=== PATIENT | female | born 1985 | race Asian ===

== ENCOUNTER 2018-05-07 16:15 | Inpatient (IN) | payer OTHER ==
[~2018-05-07] VITALS: Ht 162.6 cm; Wt 67.0 kg
--- NOTE | 2018-05-07 17:54 | PR ---
[facility] [address] [facility] [place] [address] Signed Progress Notes IP Datetime Report Generated by CPN: 05/07/2018 17:54 PROGRESS NOTES: [id number] Plan: Continue present management VITAL SIGNS: [id number] Vital Signs: Reviewed; Within Normal Limits EXAM: [id number] Dilatation: 1.0 Effacement: 50 Station: -2 Uterine Contractions: 1 contractions MEMBRANES: [id number] Membrane Status: Intact Comments: Cytotec x1, only 1 contraction, that one with slight decel. WItll watch closely. Fetus A: [id number] FHR Baseline: 130 Variability: Moderate 6-25bpm Accelerations: 15X15 Decelerations: None Presentation: Vertex Fetus B: [id number] Signing Physician: Sera Hanson MD Copies: ~ *Electronically Signed* 05/07/18 1754 SERA HANSON MD PATIENT NAME: CAIT OLIVO PROGRESS NOTE DATE OF : 81 PHYSICIAN: SERA HANSON MD RPT #: [id number] REPORT IS CONFIDENTIAL AND NOT TO BE RELEASED WITHOUT AUTHORIZATION
--- NOTE | 2018-05-07 20:32 | PR ---
[facility] [address] [facility] [place] [address] Signed Progress Notes IP Datetime Report Generated by CPN: 05/07/2018 20:32 PROGRESS NOTES: [id number] Plan: Continue present management VITAL SIGNS: [id number] Vital Signs: Reviewed; Within Normal Limits EXAM: [id number] Dilatation: 1.0 Effacement: 50 Station: -1 Uterine Contractions: every 4-6 minutes MEMBRANES: [id number] Membrane Status: Intact Comments: Just received 2nd Cytotec, fetus tolerating contractions well. Will continue with Induction, monitor as needed Fetus A: [id number] FHR Baseline: 125 Variability: Moderate 6-25bpm Accelerations: 15X15 Decelerations: None Presentation: Vertex Fetus B: [id number] Signing Physician: Sera Hanson MD Copies: ~ *Electronically Signed* 05/07/182031 SERA HANSON MD PATIENT NAME: CAIT OLIVO PROGRESS NOTE DATE OF : [birth year] PHYSICIAN: SERA HANSON MD RPT #: [id number] REPORT IS CONFIDENTIAL AND NOT TO BE RELEASED WITHOUT AUTHORIZATION
--- NOTE | 2018-05-08 07:08 | PR ---
[facility] [address] [facility] [place], [place] [address] Signed Progress Notes IP Datetime Report Generated by CPN: 05/08/2018 07:07 PROGRESS NOTES: [id number] Impression: Slow Progression of Labor Procedures: Artificial ROM Plan: Continue present management VITAL SIGNS: [id number] Vital Signs: Reviewed; Within Normal Limits EXAM: [id number] Dilatation: 3.0 Effacement: 50 Station: -2 Uterine Contractions: every 4-5 minutes MEMBRANES: [id number] Membrane Status: Ruptured Amniotic Fluid Color: Clear ROM Note: AROM with only small amount of fluid noted Comments: Patient given SQ Terbuatline earlier due to late decels, contractions have been returning, beginning to feel them again. Fetus A: [id number] FHR Baseline: 120 Variability: Moderate 6-25bpm Accelerations: 15X15 Decelerations: Late Presentation: Vertex Comments on Fetus A: occasional late decels Fetus B: [id number] Signing Physician: Sera Hanson MD Copies: ~ *Electronically Signed* 05/08/18 0707 SERA HANSON MD PATIENT NAME: CAIT OLIVO PROGRESS NOTE DATE OF : 81 PHYSICIAN: SERA HANSON MD RPT #: [id number] REPORT IS CONFIDENTIAL AND NOT TO BE RELEASED WITHOUT AUTHORIZATION
--- NOTE | 2018-05-08 09:00 | PR ---
[facility] [address] [facility] [place], [place] [address] Signed Progress Notes IP Datetime Report Generated by CPN: 05/08/2018 09:00 PROGRESS NOTES: [id number] Impression: Slow Progression of Labor Procedures: Artificial ROM Plan: Continue present management VITAL SIGNS: [id number] Vital Signs: Reviewed; Within Normal Limits EXAM: [id number] Dilatation: 4.0 Effacement: 75 Station: -2 Uterine Contractions: every 2-3 minutes MEMBRANES: [id number] Membrane Status: Ruptured Amniotic Fluid Color: Clear ROM Note: AROM with only small amount of fluid noted Comments: Would like Epidural - Anesthesia called Fetus A: [id number] FHR Baseline: 130 Variability: Moderate 6-25bpm Accelerations: 15X15 Decelerations: Late Presentation: Vertex Comments on Fetus A: occasional late decels Fetus B: [id number] Signing Physician: Sera Hanson MD Copies: ~ *Electronically Signed* 05/08/18 0900 SERA HANSON MD PATIENT NAME: CAIT OLIVO [facility] PROGRESS NOTE DATE OF : 81 PHYSICIAN: SERA HANSON MD RPT #: [id number] REPORT IS CONFIDENTIAL AND NOT TO BE RELEASED WITHOUT AUTHORIZATION
--- NOTE | 2018-05-08 09:57 | PR ---
[facility] [address] [facility] [place], [place] [address] Signed Progress Notes IP Datetime Report Generated by CPN: 05/08/2018 09:57 PROGRESS NOTES: [id number] Impression: Normal progression of labor Other Impressions: excess vaginal blood Procedures: Artificial ROM Plan: Continue present management VITAL SIGNS: [id number] Vital Signs: Reviewed; Within Normal Limits EXAM: [id number] Dilatation: 7.0 Effacement: 75 Station: -2 Uterine Contractions: every 2 minutes MEMBRANES: [id number] Membrane Status: Ruptured Amniotic Fluid Color: Bloody ROM Note: AROM with only small amount of fluid noted Comments: Patient comfortable with Epidural, had episode of excessive vaginal bleeding, but stable now, no active bleeding, FHR and maternal vitals both stable. Will continue monitoring. Fetus A: [id number] FHR Baseline: 125 Variability: Moderate 6-25bpm Accelerations: 15X15 Decelerations: Late Presentation: Vertex Comments on Fetus A: occasional late decels Fetus B: [id number] Signing Physician: Sera Hanson MD Copies: ~ *Electronically Signed* 05/08/18 0957 SERA HANSON MD PATIENT NAME: CAIT OLIVO [facility] PROGRESS NOTE DATE OF : 81 PHYSICIAN: SERA HANSON MD RPT #: [id number] REPORT IS CONFIDENTIAL AND NOT TO BE RELEASED WITHOUT AUTHORIZATION
--- NOTE | 2018-05-08 11:03 | PR ---
[facility] [address] [facility] [place], [place] [address] Signed Progress Notes IP Datetime Report Generated by CPN: 05/08/2018 11:03 PROGRESS NOTES: [id number] Impression: Normal progression of labor Other Impressions: excess vaginal blood Procedures: Artificial ROM Plan: Continue present management; Anticipate Vaginal Delivery VITAL SIGNS: [id number] Vital Signs: Reviewed; Within Normal Limits EXAM: [id number] Dilatation: 9.0 Effacement: 90 Station: 0 Uterine Contractions: every 2-3 minutes MEMBRANES: [id number] Membrane Status: Ruptured Amniotic Fluid Color: Bloody ROM Note: AROM with only small amount of fluid noted Comments: Slightly more bloody discharge, but no active bleeding. Expect delivery soon, will continue monitoring. Fetus A: [id number] FHR Baseline: 130 Variability: Moderate 6-25bpm Accelerations: 15X15 Decelerations: Late Presentation: Vertex Comments on Fetus A: occasional late decels Fetus B: [id number] Signing Physician: Sera Hanson MD Copies: ~ *Electronically Signed* 05/08/18 1103 SERA HANSON MD PATIENT NAME: CAIT OLIVO PROGRESS NOTE DATE OF : 81 PHYSICIAN: SERA HANSON MD RPT #: [id number] REPORT IS CONFIDENTIAL AND NOT TO BE RELEASED WITHOUT AUTHORIZATION
--- NOTE | 2018-05-08 11:54 | PR ---
[facility] [address] [facility] [place], [place] [address] Signed Progress Notes IP Datetime Report Generated by CPN: 05/08/2018 11:54 PROGRESS NOTES: [id number] Impression: Normal progression of labor Other Impressions: excess vaginal blood Procedures: Artificial ROM Plan: Continue present management VITAL SIGNS: [id number] Vital Signs: Reviewed; Within Normal Limits EXAM: [id number] Dilatation: 10.0 Effacement: 100 Station: 0 Uterine Contractions: every 2-3 minutes MEMBRANES: [id number] Membrane Status: Ruptured Amniotic Fluid Color: Bloody ROM Note: AROM with only small amount of fluid noted Comments: Fluid less bloody, no active bleeding. Will start pushing Fetus A: [id number] FHR Baseline: 120 Variability: Moderate 6-25bpm Accelerations: 15X15 Decelerations: Late; Variable Presentation: Vertex Comments on Fetus A: some late decels, some variable decels, but good variability Fetus B: [id number] Signing Physician: Tyler Hanson MD Copies: ~ *Electronically Signed* 05/08/18 1154 TYLER HANSON MD PATIENT NAME: PALLAVI[facility] PROGRESS NOTE DATE OF : [birth year] PHYSICIAN: TYLER HANSON MD RPT #: [id number] REPORT IS CONFIDENTIAL AND NOT TO BE RELEASED WITHOUT AUTHORIZATION
--- NOTE | 2018-05-08 12:30 | PR ---
[facility] [address] [facility] [place], [place] [address] Signed Progress Notes IP Datetime Report Generated by CPN: 05/08/2018 12:30 PROGRESS NOTES: [id number] Impression: Normal progression of labor Other Impressions: excess vaginal blood Procedures: Artificial ROM Plan: Continue present management VITAL SIGNS: [id number] Vital Signs: Reviewed; Within Normal Limits EXAM: [id number] Dilatation: 10.0 Effacement: 100 Station: 2 Uterine Contractions: every 2-3 minutes MEMBRANES: [id number] Membrane Status: Ruptured Amniotic Fluid Color: Bloody ROM Note: AROM with only small amount of fluid noted Comments: Pushing well, moving baby down . Continue monitoring FHR, expect delivery soon. Fetus A: [id number] FHR Baseline: 140 Variability: Moderate 6-25bpm Accelerations: 15X15 Decelerations: Late; Variable Presentation: Vertex Comments on Fetus A: some late decels, some variable decels, but good variability Fetus B: [id number] Signing Physician: Tyler Hanson MD Copies: ~ *Electronically Signed* 05/08/18 1230 TYLER HANSON MD PATIENT NAME: CAIT [facility]O [facility] PROGRESS NOTE DATE OF : [birth year] PHYSICIAN: TYLER HANSON MD RPT #: [id number] REPORT IS CONFIDENTIAL AND NOT TO BE RELEASED WITHOUT AUTHORIZATION
--- NOTE | 2018-05-09 12:03 | PR ---
[facility] [address] [place] [address] Signed PP Progress Notes Datetime Report Generated by CPN: 05/09/2018 12:03 SUBJECTIVE: [id number] Pain: Within normal limits Nausea/Vomiting: Denies Vital Signs: [id number] Vital Signs: Reviewed; Within Normal Limits Notable Details: PP Hgb/Hct = 7.0/20.8 EXAM: [id number] Abdomen/Uterus: Normal Lochia: Normal Extremities: Normal IMPRESSION/PLAN/PROCEDURES: [id number] Other Impression: PP Hemorrhage, stable now Plan: Continue present management Progress Notes: Feeling better, bleeding ahs slowed, tolerating food well, no longer dizzy or weak feeling, would like to try getting up out of bed. Will d/c Linda and try increasing activity as tolerated. Recheck Hgb/Hct in am Signing Physician: Sera Renae MD Copies: ~ *Electronically Signed* 05/09/18 1203 SEAR RENAE MD PATIENT NAME: CAIT OLIVO [facility] PROGRESS NOTE DATE OF : 81 PHYSICIAN: SERA RENAE MD [facility] [[email or web address]] #: [id number] REPORT IS CONFIDENTIAL AND NOT TO BE RELEASED WITHOUT AUTHORIZATION
--- NOTE | 2018-05-10 09:57 | PR ---
[facility] [address] [facility] [place], [place] [address] Signed PP Progress Notes Datetime Report Generated by CPN: 05/10/2018 09:57 SUBJECTIVE: [id number] Pain: Within normal limits Nausea/Vomiting: Denies Vital Signs: [id number] Vital Signs: Reviewed; Within Normal Limits Notable Details: PP Hgb/Hct = 7.0/20.8 EXAM: [id number] Abdomen/Uterus: Normal Lochia: Normal Extremities: Normal IMPRESSION/PLAN/PROCEDURES: [id number] Other Impression: Anemia Plan: Discharge Procedures: Transfusion Progress Notes: Doing well, without complaint, minimal vaginal bleeding now, but slowly decreasing H_H. Discussed transfusion; risks vs benefits, option of continued observations. Questions answered. Patient agrees to transfusion and will then go home later today Signing Physician: Sera Hanson MD Copies: ~ *Electronically Signed* 05/10/18 0957 SERA HANSON MD PATIENT NAME: CAIT OLIVO PROGRESS NOTE DATE OF : 81 PHYSICIAN: SERA HANSON MD RPT #: [id number] REPORT IS CONFIDENTIAL AND NOT TO BE RELEASED WITHOUT AUTHORIZATION
== END 2018-05-10 17:35 | disposition home or self-care (01) | DRG 768 ==
LOC: FBC 16:15
PROVIDERS: ADMIT General Practice
PROC: 10E0XZZ Delivery of Products of Conception, External Approach (ICD-10-PCS; principal; 2018-05-08)
PROC: 0DQP0ZZ Repair Rectum, Open Approach (ICD-10-PCS; 2018-05-08)
PROC: 3E0P7VZ Introduction of Hormone into Female Reproductive, Via Natural or Artificial Opening (ICD-10-PCS; 2018-05-08)
PROC: 10907ZC Drainage of Amniotic Fluid, Therapeutic from Products of Conception, Via Natural or Artificial Opening (ICD-10-PCS; 2018-05-08)
PROC: 00HU33Z Insertion of Infusion Device into Spinal Canal, Percutaneous Approach (ICD-10-PCS; 2018-05-08)
PROC: 3E0R3BZ Introduction of Anesthetic Agent into Spinal Canal, Percutaneous Approach (ICD-10-PCS; 2018-05-08)
PROC: 3E0234Z Introduction of Serum, Toxoid and Vaccine into Muscle, Percutaneous Approach (ICD-10-PCS; 2018-05-10)
PROC: 30233N1 Transfusion of Nonautologous Red Blood Cells into Peripheral Vein, Percutaneous Approach (ICD-10-PCS; 2018-05-10)
DX: O41.03X0 Oligohydramnios, third trimester, not applicable or unspecified (principal); Z37.0 Single live birth; O72.1 Other immediate postpartum hemorrhage; D62 Acute posthemorrhagic anemia; O70.3 Fourth degree perineal laceration during delivery; Z3A.39 39 weeks gestation of pregnancy; O76 Abnormality in fetal heart rate and rhythm complicating labor and delivery; O43.113 Circumvallate placenta, third trimester; O90.81 Anemia of the puerperium; O34.13 Maternal care for benign tumor of corpus uteri, third trimester; D25.9 Leiomyoma of uterus, unspecified; Z23 Encounter for immunization
CPT/HCPCS: 01960; 36415; 85027; 86850; 86900; 86901; 86920; 90707; J2590; J3105; J7120